=== PATIENT | male | born 1965 | race Caucasian/White ===

== ENCOUNTER 2022-04-24 11:21 | Emergency (ER) | payer OTHER ==
[~2022-04-24] VITALS: Ht 170.2 cm; Wt 70.3 kg
[2022-04-24 11:21] VITALS: BP_SYST 116
--- NOTE | 2022-04-24 11:21 | NUR ---
BROUGHT BACK TO TENT AND TRIAGED. PT IS COVID +, STATES HE WAS PULLING OUT HAIR ON FACE, NOW WITH SWELLING TO LEFT SIDE OF FACE. WILL ASSUME CARE
--- NOTE | 2022-04-24 11:35 | NUR ---
PT STATES THAT HE WAS PULLING ON SOME FACIAL HAIR AND NOW WITH LEFT SIDE OF HIS FACE IS SWOLLEN, STATES SWELLING STARTED LAST NIGHT. STATES THAT BOTH HIM AND HIS IS ++ FOR COVID. PT WAITING IN TENT FOR EVALUATION
--- NOTE | 2022-04-24 13:16 | NUR ---
MAI [facility] in tent examining patient.
[2022-04-24] MEDS ORDERED: CLE150 PO (14:00)
[2022-04-24] MEDS ORDERED: CLINDAMYCIN HCL 150 MG CAPSULE PO ONE (14:00)
--- NOTE | 2022-04-24 14:37 | NUR ---
Patient given written and verbal discharge instructions and verbalizes understanding. ER MD discussed with patient the results and treatment provided. Patient in stable condition. ID arm band removed. Rx of CLINDAMYCIN given. Patient educated on pain management and to follow up with PMD. Pain Scale 0/10. Opportunity for questions provided and answered. Medication side effect fact sheet provided. PT STATES HE DID NOT WANT TO WAIT FOR MEDICATION AND WILL TAKE IT FROM THE PRESCRIPTION HE RECEIVED.
== END 2022-04-24 14:37 | disposition home or self-care (01) ==
LOC: SED 11:21
DX: L02.02 Furuncle of face (principal); R22.32 Localized swelling, mass and lump, left upper limb; Z79.899 Other long term (current) drug therapy
CPT/HCPCS: 87070-TC; 87186-TC; 99283